=== PATIENT | male | born 1975 | race Caucasian/White ===

== ENCOUNTER 2017-04-26 11:17 | Inpatient (IN) | payer OTHER, SELFPAY ==
[~2017-04-26 11:17] MED LIST: ISOVUE-370 76%-LOCM 1 ML ONE
[2017-04-26 12:07] LABS: #Eosinphils 0.1 thou/uL (0.0-0.7); #Lymphocytes 1.9 thou/uL (1.20-3.40); #Monocytes 0.7 thou/uL (0.11-0.59); #Neutrophils 4.2 thou/uL (1.40-6.50); %Basophils 0.5 % (0.0-1.0); %Eosinophils 1.2 % (0.0-10.0); %Monocytes 9.6 % (0.0-10.0); Hematocrit 41.3 % (42.0-52.0); Mean Platelet Volume 8.5 fL (7.4-10.4); Red Blood Cell (RBC) Count 4.07 mill/uL (4.70-6.10); White Blood Cell (WBC) Count 6.8 thou/uL (4.8-10.8)
[2017-04-26 12:33] LABS: Chloride 95 mmol/L (98-107)
[2017-04-26 12:34] LABS: ALT (SGPT) 223 U/L (8-55); AST (SGOT) 333 U/L (5-34); Alkaline Phosphatase 303 U/L (40-150); Anion Gap 15 mmol/L (10-20); BUN (Urea Nitrogen) 18 mg/dL (8.9-20.6); Calc. Creatinine Clearance 0 mL/min (70-130); Calcium 8.8 mg/dL (7.8-10.44); Carbon Dioxide 27 mmol/L (22-29); Estimated GFR-MDRD 43; Globulin 3.3 g/dL (2.4-3.5); Lipase 48 U/L (8-78); Protein, Total 6.5 g/dL (6.0-8.3)
[2017-04-26] MEDS ORDERED: Ondansetron HCl/PF 4 MG/2 ML Vial ONE (12:35)
[2017-04-26 12:46] LABS: Bilirubin Large (Negative); Blood, Urine Negative (Negative); Ketone, Urine Trace mg/dL (Negative); Nitrite Negative (Negative); Protein, Urine (Dipstick) 30 mg/dL (Neg-Trace)
[2017-04-26 12:49] LABS: Bacteria/HPF None Seen HPF (None Seen); Hyaline Casts/LPF 4-6 HYALINE CAST LPF (0-3 Hyaline); Squamous Epithelial 0-3 HPF (0-3)
[2017-04-26 12:57] LABS: Glucose, Urine (Dipstick) 250 mg/dL (Negative)
--- NOTE | 2017-04-26 13:01 | CT ---
CT ABDOMEN WITH CONTRAST CT PELVIS WITH CONTRAST: DATE: 04/26/2017 HISTORY: A 41-year-old male with nausea, emesis, diarrhea, and generalized abdominal pain. COMPARISON: None. TECHNIQUE: IV injection of iodinated contrast media: Isovue-370 100 mL. Oral contrast media: Not administered. FINDINGS: The liver is diffusely enlarged and has diffusely low attenuation, representing a fatty liver. The s pleen, kidneys, abdominal aorta, adrenals, and pancreas are essentially normal. No small bowel dilat ion. No signs of acute colonic diverticulitis. No ascites or pneumoperitoneum. The lung bases are clear. IMPRESSION: 1. Hepatomegaly. 2. Hepatic steatosis. 3. No other pathology. DISHA Murphy POS: [place]
[2017-04-26 13:05] LABS: RBC/HPF 0-3 HPF (0-3)
[2017-04-26 13:06] LABS: Transitional Epithelial 0-3 HPF (0-3)
[2017-04-26 13:09] LABS: PTT 27.5 SEC (22.9-36.1); Prothrombin Time 13.6 SEC (12.0-14.7)
[2017-04-26] MEDS ORDERED: Pantoprazole 40 MG VIAL ONE (13:17)
[2017-04-26] MEDS ORDERED: Morphine 4 MG/ML Carpuject ONE (13:17)
[2017-04-26] MEDS ORDERED: Multivitamins, Adult 10 ML, Thiamine HCl 100 MG, Folic Acid 1 MG in Dextrose 5 %-0.45 %... IV SCH ×4 (15:00)
[2017-04-26 15:27] LABS: Hemoglobin A1c 5.7 % (4.0-6.0)
[2017-04-26 16:05] VITALS: BMI 32.4
[2017-04-26] MEDS ORDERED: Dextrose 5% in Water 1,000 ML IV PRN (16:09)
[2017-04-26] MEDS ORDERED: Insulin Regular 300 UNITS/3 ML VIAL SC PRN (16:09)
[2017-04-26] MEDS ORDERED: Ondansetron HCl/PF 4 MG/2 ML Vial IVP PRN (16:09)
[2017-04-26] MEDS ORDERED: Eucerin (Mineral Oil/Petrolatum,White) 30 gm Jar TOP PRN (16:09)
[2017-04-26] MEDS ORDERED: Polyethylene Glycol 3350 17 GM Packet PO PRN (16:09)
[2017-04-26] MEDS ORDERED: cloNIDine 0.1 MG TAB PO PRN (16:09)
[2017-04-26] MEDS ORDERED: Ondansetron ODT 4 MG TAB PO PRN (16:09)
[2017-04-26] MEDS ORDERED: Calcium Carbonate 500 MG ChewTAB PO PRN (16:09)
[2017-04-26] MEDS ORDERED: Dextrose 50% Abboject 50 ML SYRINGE SLOW IVP PRN (16:09)
[2017-04-26] MEDS ORDERED: Senokot 8.6 MG TAB PO PRN (16:09)
[2017-04-26] MEDS ORDERED: Morphine PF 1 MG/ML SYR IV SCH (16:45)
[2017-04-26] MEDS ORDERED: FLU VACC QS2017-18 36 mo. & older 0.5 ML SYRINGE IM ONE (17:15)
[2017-04-26] MEDS: Sodium Chloride 0.9% 1,000 ML IV SCH (17:38)
--- NOTE | 2017-04-26 18:25 | HP ---
DATE OF ADMISSION: 04/26/2017 PRIMARY CARE PHYSICIAN: Patient follows at [facility]. CHIEF COMPLAINT: Abnormal labs. HISTORY OF PRESENT ILLNESS: Patient is a 41-year-old male with chronic alcoholism, who presented to the emergency room with above complaints. Over the past few weeks, the patient developed gradual worsening nausea along with intermittent vomi ting. He also had crampy abdominal discomfort. He had some diarrhea initially; however, that has r esolved. No fever, chills, or sick contacts reported. He has a history of drug abuse in the past. He continues to drink heavily on a daily basis. He was evaluated at [facility] yesterday and h ad some blood work drawn. He went for followup and was found to have abnormal LFTs for which he was referred to the emergency room. In the emergency room, initial vital signs showed temperature 97.7, respirations 18, pulse rate of 1 21 with blood pressure of 132/81 with O2 saturation 96% on room air. His initial labs were consiste nt with bilirubin of 5.0 with AST 333, ALT 223, and alkaline phosphatase 303 with normal PT at 13.6. Acute hepatitis profile was negative. He underwent a CT scan of the abdomen with contrast that wa s consistent with hepatomegaly with hepatic steatosis. He received a banana bag, morphine, Protonix , Zofran with IV fluids in the emergency room. PAST MEDICAL HISTORY: 1. Chronic alcoholism. 2. Hypertension. PAST SURGICAL HISTORY: 1. Ingrown toenail removal. 1. Ear surgery (tympanoplasty). ALLERGIES: Patient denies any drug allergies. CURRENT HOME MEDICATIONS: Patient was recently started on lisinopril/HCTZ and Phenergan. He does n ot remember the exact dosages of his medications. SOCIAL HISTORY: As discussed above with drinks 3-4 rounds of vodka on a daily basis. He is a forme r drug user. Smokes 1 pack a day on a daily basis. Lives at home with his fianc?. FAMILY HISTORY: Negative for premature coronary artery disease. REVIEW OF SYSTEMS: The following complete review of systems was negative, unless otherwise mentione d in the HPI or below: CONSTITUTIONAL: Weight loss or gain, ability to conduct usual activities. SKIN: Rash, itching. EYES: Double vision, pain. ENT/MOUTH: Nose bleeding, neck stiffness, pain, tenderness. CARDIOVASCULAR: Palpitations, dyspnea on exertion, orthopnea. RESPIRATORY: Shortness of breath, wheezing, cough, hemoptysis, fever or night sweats. GASTROINTESTINAL: Poor appetite, abdominal pain, heartburn, nausea, vomiting, constipation, or diar jaswant. GENITOURINARY: Urgency, frequency, dysuria, nocturia. MUSCULOSKELETAL: Pain, swelling. NEUROLOGIC/PSYCHIATRIC: Anxiety, depression. ALLERGY/IMMUNOLOGIC: Skin rash, bleeding tendency. PHYSICAL EXAMINATION: VITAL SIGNS: As discussed above. GENERAL: A 41-year-old male in mild distress due to abdominal discomfort that has significantly imp roved. HEENT: Head atraumatic, normocephalic. Sclerae anicteric. Moist mucous membranes. No oral lesion . NECK: Supple, no JVD, no carotid bruit. LUNGS: Clear to auscultation bilaterally. HEART: S1, S2 present. Regular rate and rhythm, intermittent tachycardia. ABDOMEN: Soft, bowel sounds present. Mild generalized tenderness. No rebound, guarding, no costov ertebral angle tenderness. EXTREMITIES: No edema or calf tenderness. NEUROLOGIC: Grossly nonfocal, moves all 4 extremities. PSYCHIATRY: Alert, awake, oriented x3. SKIN: Warm and dry. LYMPH NODES: No palpable lymph nodes in the neck. PERIPHERAL VASCULAR: Radial pulses palpable bilaterally. MUSCULOSKELETAL: No joint swelling or tenderness. LABORATORY FINDINGS: As discussed above. MCV 102 with hemoglobin 13.1, ammonia was normal. Urinal ysis showed hyaline cast. EKG by my review showed sinus tachycardia without significant ST-T wave c hanges. CT scan of the abdomen and pelvis by my review as discussed above. IMPRESSION: 1. Abnormal LFTs consistent with acute alcoholic hepatitis. 2. Chronic alcoholism. 3. Dehydration with acute kidney injury. 4. Hyperglycemia with normal hemoglobin A1c at 5.7. 5. Abnormal liver function tests secondary to #1. 6. Obesity with a BMI of 32.4. 7. Macrocytic anemia, probably secondary to chronic alcoholism. 7. Ongoing tobacco abuse. 8. Former drug user. 9. Hyponatremia, probably secondary to dehydration and mild protein-calorie malnutrition. PLAN: The patient will be monitored on the medical floor. The patient was extensively counseled to quit drinking and smoking. We will continue with thiamine, folic acid and multivitamins. Gastroen terology will be consulted. His discriminant score is 12. There is no need to start him on steroid s. We will repeat LFTs in a.m. Alcohol withdrawal protocol. We will start him on clonidine, which will help with alcohol withdrawal. Hold lisinopril/HCTZ for now. We will also add vitamin B12 and folic acid due to microcytosis. Plan of care was discussed with the patient and he stated understanding.
[2017-04-26] MEDS: cloNIDine 0.1 MG TAB PO SCH (21:37)
[2017-04-26] MEDS: Famotidine 20 MG TAB PO SCH (21:37)
[2017-04-26 23:18] LABS: Amphetamine Not Detected (NotDetected); Methadone Not Detected (NotDetected); Methamphetamine Not Detected (NotDetected)
[2017-04-27] MEDS: traMADol HCl 50 MG TAB PO PRN ×2 (04:23→12:43)
[2017-04-27 05:42] LABS: ALT (SGPT) 172 U/L (8-55); AST (SGOT) 249 U/L (5-34); Alkaline Phosphatase 323 U/L (40-150); Anion Gap 14 mmol/L (10-20); BUN (Urea Nitrogen) 14 mg/dL (8.9-20.6); Bilirubin, Direct 2.3 mg/dL (0.1-0.3); Calc. Creatinine Clearance 91 mL/min (70-130); Calcium 8.3 mg/dL (7.8-10.44); Carbon Dioxide 23 mmol/L (22-29); Chloride 101 mmol/L (98-107); Estimated GFR-MDRD 55; Magnesium 1.7 mg/dL (1.6-2.6); Phosphorus 2.5 mg/dL (2.3-4.7); Protein, Total 5.9 g/dL (6.0-8.3)
[2017-04-27 05:46] LABS: #Basophils 0.1 thou/uL (0.0-0.2); #Eosinphils 0.2 thou/uL (0.0-0.7); #Lymphocytes 2.8 thou/uL (1.20-3.40); #Monocytes 0.7 thou/uL (0.11-0.59); #Neutrophils 4.2 thou/uL (1.40-6.50); %Basophils 1.1 % (0.0-1.0); %Eosinophils 2.4 % (0.0-10.0); %Lymphocytes 35.7 % (21.0-51.0); %Monocytes 8.2 % (0.0-10.0); Mean Platelet Volume 8.4 fL (7.4-10.4); Red Blood Cell (RBC) Count 3.69 mill/uL (4.70-6.10); White Blood Cell (WBC) Count 7.9 thou/uL (4.8-10.8)
[2017-04-27] MEDS ORDERED: Diazepam 5 MG TAB PO PRN (08:01)
[2017-04-27] MEDS ORDERED: Diazepam 5 MG TAB PO SCH (08:15)
[2017-04-27] MEDS ORDERED: Thiamine HCl 200 MG/2 ML VIAL IM SCH (08:15)
[2017-04-27] MEDS ORDERED: Magnesium Sulfate 1 GM, Admixture Fee 1 EACH in Sodium Chloride 0.9% 100 ML IVPB SCH ×2 (08:15→12:30)
[2017-04-27] MEDS: Sodium Chloride 0.9% 1,000 ML IV SCH ×2 (08:31→21:40)
[2017-04-27] MEDS: Multivitamin W/ Minerals 1 TAB PO SCH (08:31)
[2017-04-27] MEDS: Cyanocobalamin (Vitamin B-12) 1,000 MCG TAB PO SCH (08:32)
[2017-04-27] MEDS: cloNIDine 0.1 MG TAB PO SCH ×2 (08:32→21:37)
[2017-04-27] MEDS: Folic Acid 1 MG TAB PO SCH (08:32)
[2017-04-27] MEDS: Famotidine 20 MG TAB PO SCH ×2 (08:32→21:37)
[2017-04-27] MEDS ORDERED: Folic Acid 1 MG TAB PO SCH (09:00)
[2017-04-27] MEDS ORDERED: Multivit, Therapeutic 1 TAB PO SCH (09:00)
--- NOTE | 2017-04-27 12:12 | PDOC.PN ---
- Subjective Encounter Start Date: 04/27/17 Encounter Start Time: 08:00 Pt seen adn examined, chart reviewed in its entirety. This is my first visit with this patient. Pt BP up and tachycardic. feels restless and jittery. denies alcohol addiction. no history of DUI or social dysfunction, but drinks every night before bed and misses it when he doesn't. No n/V/d/C, no CP or SOB, no BM since yesterday am, is having some cramps primarily in LUQ intermittently. Does admit to wheezing, denies history of asthma or COPD. Offered nicotine patch, pt declined. Pt counseled regarding need for tobacco cessation adn alcohol cessation 10 point ROS performed and neg for all except as per HPI - Objective Resuscitation Status: Resuscitation Status FULL:Full Resuscitation MAR Reviewed: Yes Vital Signs & Weight: Vital Signs (12 hours) Temp Pulse Resp BP BP Pulse Ox 04/27/17 11:06 98.5 F 97 18 152/91 H 96 04/27/17 08:32 156/96 H 04/27/17 07:11 98.4 F 98 18 162/107 H 95 04/27/17 04:00 98.2 F 98 18 146/83 H 94 L Weight Admit Weight 207 lb Weight 207 lb Result Diagrams: 04/27/17 04:35 04/27/17 04:35 Additional Labs: Accuchecks 04/27/17 04/27/17 04/26/17 11:06 04:14 19:32 POC Glucose 163 H 124 H 150 H 04/26/17 16:54 POC Glucose 208 H Radiology Reviewed by me: Yes EKG Reviewed by me: Yes Phys Exam - Physical Examination Constitutional: NAD slightly anxious HEENT: PERRLA, moist MMs, sclera anicteric, oral pharynx no lesions mild scleral icterus Neck: no nodes, no JVD, supple, full ROM Respiratory: no wheezing, no rales, no rhonchi, clear to auscultation bilateral slightly prolonged expiration, expiratory wheezes present diffusely Cardiovascular: RRR, no significant murmur, no rub Gastrointestinal: soft, non-tender, no distention, positive bowel sounds Musculoskeletal: no edema, pulses present Neurological: non-focal, normal sensation, moves all 4 limbs Lymphatic: no nodes Psychiatric: normal affect, A&O x 3 Skin: no rash, normal turgor, cap refill <2 seconds Dx/Plan (1) ETOH abuse Code(s): F10.10 - ALCOHOL ABUSE, UNCOMPLICATED Status: Acute Comment: counseled (2) Alcoholic hepatitis Code(s): K70.10 - ALCOHOLIC HEPATITIS WITHOUT ASCITES Status: Acute Comment : LFTs better, continue IV lfuids. GI consulted, followup on their recommendations (3) Alcohol dependence with withdrawal Code(s): F10.239 - ALCOHOL DEPENDENCE WITH WITHDRAWAL, UNSPECIFIED Status: Acute Qualifiers: Complication of substance-induced condition: uncomplicated Qualified Code(s ): F10.230 - Alcohol dependence with withdrawal, uncomplicated (4) Dehydration, moderate Code(s): E86.0 - DEHYDRATION Status: Resolved Comment: continue on IV fluids for now (5) DWAIN (acute kidney injury) Code(s): N17.9 - ACUTE KIDNEY FAILURE, UNSPECIFIED Status: Acute Comment: improved, baseline unknown. Cr back into upper normal range (6) HTN (hypertension) Code(s): I10 - ESSENTIAL (PRIMARY) HYPERTENSION Status: Chronic Qualifiers: Hypertension type: essential hypertension Qualified Code(s): I10 - Essential (primary) hypertension Comment: amanda ybe complicated by withdrawl symptoms (7) Mild protein-calorie malnutrition Code(s): E44.1 - MILD PROTEIN-CALORIE MALNUTRITION Status: Acute - Plan cont current plan of care, PT/OT, out of bed/ambulate * .
[2017-04-27] MEDS: Insulin Regular 300 UNITS/3 ML VIAL SC PRN (17:15)
[2017-04-27] MEDS: Lorazepam 1 MG TAB PO PRN (17:39)
--- NOTE | 2017-04-28 00:34 | CON ---
DATE OF CONSULTATION: 04/27/2017 REFERRING PHYSICIAN: Mark Cid M.D. REASON FOR CONSULTATION: Abnormal LFTs. HISTORY OF PRESENT ILLNESS: Mr. Vik Jung is a 41-year-old male with a history of alcohol abuse over the years. He tends to minimize the amount of alcohol intake he is taking. He says he only drinks about 3-4 short glass of vodka every day. Apparently, he drinks a lot more than he used to. He usually goes to [facility] and he also had a blood test and was found to have elevated LFTs. He was sent to the ER because of above reason. Interestingly, the patient has good appetite. He has no nausea, no vomiting. He has vague abdominal discomfort. He appears very comfortable, but at the same time, he says he has a lot of pain. The patient has no history of any drug abuse in the past. The liver function tests are elevated and suggestive of alcoholic liver disease. The AST is more than ALT. AST is 249, ALT 172, alkaline phosphatase is 323, bilirubin is 3. The abdominal CAT scan done showed basically fatty liver. The patient does admit drinking very heavily; he means that he drinks only 3 to 4 drinks every day. He does not drink anything more than that. The patient denies drug abuse. He has no other relevant symptoms. ALLERGIES: None. SOCIAL HISTORY: The patient has a girlfriend. He smokes a packet of cigarettes per day. He also drinks alcohol on a regular basis for many years. MEDICAL ILLNESSES: 1. Hypertension. 2. Chronic alcohol abuse. SURGERIES: 1. Status post ear surgery. 2. Ingrown toenails in the past. MEDICATIONS: Include lisinopril, hydrochlorothiazide, and Phenergan. FAMILY HISTORY: No family history of any cancer, heart disease, CVA, hypertension. REVIEW OF SYSTEMS: A 10-point system review: Constitutional: There is no history of any fever, night sweats, weight loss, or gait. HORSE TRAINER: No dizziness, no syncope, no TIA, no seizure disorder, no chronic headache. Respiratory System: No history of chronic cough, hemoptysis, shortness of breath; however, he does have allergies off and on. Cardiovascular System: No chest pain, no palpitation, no dyspnea, orthopnea, or PND. Gastrointestinal: No abdominal pain, no nausea, no vomiting, no hematochezia, no melena. Musculoskeletal: History of back pain and arthralgias. Neurological: History of depression or anxiety. PHYSICAL EXAMINATION: GENERAL: He is awake, alert, and communicative. He is in no distress. He appears very comfortable. In fact, he is actually using a nebulizer when I walk in the room, although he denies any asthma. VITAL SIGNS: Afebrile, pulse is 96, blood pressure 175/102. HEENT: Conjunctivae are mildly icteric. NECK: Supple. No adenitis or thyromegaly noted. CARDIOVASCULAR SYSTEM: First and second heart sounds are normal. LUNGS: Clear to auscultation. ABDOMEN: Soft to palpate. Abdomen is mildly tender over the epigastric area. There is no rebound or guarding. Liver is not enlarged. EXTREMITIES: Reveal no edema. LABORATORY DATA: From today, sodium 134, potassium 4.3, chloride 101, bicarb 23 , BUN is 14, creatinine 1.44, glucose is 106, calcium 8.3, bilirubin is 3, direct bilirubin 2.3, AST of 249, ALT 172, alkaline phosphatase 323, mostly intrahepatic cholestasis. CLINICAL IMPRESSION: A 41-year-old male with, 1. Abnormal liver function tests, very suggestive of alcoholic liver disease. He had a fatty liver on CAT scan. 2. Abdominal pain, very minimal and nonspecific. 3. Hypertension. RECOMMENDATIONS: 1. I agree with thiamine and folic acid. 2. I had a long talk with the patient, explained him about the need for stop drinking completely. He promised me that he will stop drinking completely from now on, and he can probably go home hopefully tomorrow. HARPER
[2017-04-28] MEDS ORDERED: Diazepam 5 MG TAB PO PRN (04:00)
[2017-04-28 06:09] LABS: ALT (SGPT) 127 U/L (8-55); AST (SGOT) 152 U/L (5-34); Alkaline Phosphatase 327 U/L (40-150); Anion Gap 10 mmol/L (10-20); BUN (Urea Nitrogen) 12 mg/dL (8.9-20.6); Bilirubin, Total 2.4 mg/dL (0.2-1.2); Calc. Creatinine Clearance 109 mL/min (70-130); Calcium 7.9 mg/dL (7.8-10.44); Carbon Dioxide 28 mmol/L (22-29); Chloride 99 mmol/L (98-107); Estimated GFR-MDRD 67; Globulin 2.6 g/dL (2.4-3.5); Magnesium 1.4 mg/dL (1.6-2.6); Protein, Total 5.1 g/dL (6.0-8.3)
[2017-04-28 06:13] LABS: Band 2 % (5-11); Hematocrit 33.9 % (42.0-52.0); Mean Platelet Volume 8.7 fL (7.4-10.4); Neutrophil 62 % (42-75); Reactive Lymphocytes 2 % (0-10); Red Blood Cell (RBC) Count 3.27 mill/uL (4.70-6.10); Stomatocytes SLIGHT = 2-5 cells (100X) (0-1/hpf); Target Cells SLIGHT = 2-5 cells (100X) (0-1/hpf); White Blood Cell (WBC) Count 7.1 thou/uL (4.8-10.8)
[2017-04-28] MEDS ORDERED: Magnesium Sulfate 4 GM in Sodium Chloride 0.9% 250 ML 250 ML IVPB SCH (08:00)
[2017-04-28] MEDS: Multivitamin W/ Minerals 1 TAB PO SCH (08:15)
[2017-04-28] MEDS: Lorazepam 1 MG TAB PO PRN ×2 (08:15→16:24)
[2017-04-28] MEDS: Diabetic Tussin 200 MG/10 ML UDCUP PO PRN (08:15)
[2017-04-28] MEDS: Magnesium Oxide 400 MG TAB PO SCH (08:16)
[2017-04-28] MEDS: Cyanocobalamin (Vitamin B-12) 1,000 MCG TAB PO SCH (08:16)
[2017-04-28] MEDS: cloNIDine 0.1 MG TAB PO SCH ×2 (08:16→20:14)
[2017-04-28] MEDS: Folic Acid 1 MG TAB PO SCH (08:16)
[2017-04-28] MEDS: Famotidine 20 MG TAB PO SCH ×2 (08:16→20:14)
[2017-04-28] MEDS: Sodium Chloride 0.9% 1,000 ML IV SCH ×2 (08:18→21:33)
--- NOTE | 2017-04-28 11:23 | PDOC.PN ---
- Subjective Encounter Start Date: 04/28/17 Encounter Start Time: 09:30 -: old records requested/rev Patient seen and examined. No new complaints. No overnight events, still has shakiness - Objective Resuscitation Status: Resuscitation Status FULL:Full Resuscitation MAR Reviewed: Yes Vital Signs & Weight: Vital Signs (12 hours) Temp Pulse Resp BP BP Pulse Ox 04/28/17 10:32 90 12 04/28/17 08:00 98 F 86 18 163/94 H 04/28/17 07:30 98 F 86 18 163/94 H 96 04/28/17 04:00 98.6 F 93 16 151/89 H 151/89 H 96 04/28/17 00:00 97.8 F 93 16 129/70 129/70 98 Weight Admit Weight 207 lb Weight 207 lb I&O: 04/27/17 04/28/17 04/29/17 06:59 06:59 06:59 Intake Total 2560 Output Total 2600 Balance -40 Result Diagrams: 04/28/17 04:19 04/28/17 04:19 Additional Labs: Accuchecks 04/28/17 04/27/17 04/27/17 04:26 19:13 15:53 POC Glucose 129 H 126 H 228 H 04/27/17 11:06 POC Glucose 163 H Phys Exam - Physical Examination Constitutional: NAD HEENT: PERRLA, moist MMs, sclera anicteric Neck: no JVD, supple Respiratory: no wheezing, no rales, no rhonchi Cardiovascular: RRR, no significant murmur, no rub Gastrointestinal: soft, non-tender, no distention, positive bowel sounds Musculoskeletal: no edema, pulses present Neurological: non-focal, normal sensation Lymphatic: no nodes Psychiatric: normal affect, A&O x 3 Skin: no rash, normal turgor Dx/Plan (1) DWAIN (acute kidney injury) Code(s): N17.9 - ACUTE KIDNEY FAILURE, UNSPECIFIED Status: Acute Comment: improved, baseline unknown. Cr back into upper normal range (2) Alcohol withdrawal syndrome Code(s): F10.239 - ALCOHOL DEPENDENCE WITH WITHDRAWAL, UNSPECIFIED Status: Acute (3) Alcoholic hepatitis Code(s): K70.10 - ALCOHOLIC HEPATITIS WITHOUT ASCITES Status: Acute Comment : LFTs better, continue IV lfuids. GI consulted, followup on their recommendations (4) Hypomagnesemia Code(s): E83.42 - HYPOMAGNESEMIA Status: Acute (5) Mild protein-calorie malnutrition Code(s): E44.1 - MILD PROTEIN-CALORIE MALNUTRITION Status: Acute (6) ETOH abuse Code(s): F10.10 - ALCOHOL ABUSE, UNCOMPLICATED Status: Chronic Comment: counseled (7) HTN (hypertension) Code(s): I10 - ESSENTIAL (PRIMARY) HYPERTENSION Status: Chronic Qualifiers: Hypertension type: essential hypertension Qualified Code(s): I10 - Essential (primary) hypertension Comment: amanda villa complicated by withdrawl symptoms (8) Macrocytic anemia Code(s): D53.9 - NUTRITIONAL ANEMIA, UNSPECIFIED Status: Chronic (9) Obesity (BMI 30.0-34.9) Code(s): E66.9 - OBESITY, UNSPECIFIED Status: Chronic (10) Tobacco abuse Code(s): Z72.0 - TOBACCO USE Status: Chronic (11) Dehydration, moderate Code(s): E86.0 - DEHYDRATION Status: Resolved Comment: continue on IV fluids for now - Plan cont current plan of care, plan discussed w/ family * replace magnesium * continue to treat for alcohol withdrawl * will monitor today * continue oral folic acid, thiamine, and B12. * medication reviewed as below * symptomatic treatment * counselled to avoid alcohol Review of Systems - Review of Systems ENT: negative: Ear Pain, Ear Discharge, Nose Pain, Nose Discharge, Nose Congestion, Mouth Pain, Mouth Swelling, Throat Pain, Throat Swelling, Other Respiratory: negative: Cough, Dry, Shortness of Breath, Hemoptysis, SOB with Excertion, Pleuritic Pain, Sputum, Wheezing Cardiovascular: negative: Chest Pain, Palpitations, Orthopnea, Paroxysmal Noc. Dyspnea, Edema, Light Headedness, Other Gastrointestinal: negative: Nausea, Vomiting, Abdominal Pain, Diarrhea, Constipation, Melena, Hematochezia, Other Genitourinary: negative: Dysuria, Frequency, Incontinence, Hematuria, Retention , Other Musculoskeletal: negative: Neck Pain, Shoulder Pain, Arm Pain, Back Pain, Hand Pain, Leg Pain, Foot Pain, Other Skin: negative: Rash, Lesions, Monico, Bruising, Other - Medications/Allergies Allergies/Adverse Reactions: Allergies Allergy/AdvReac Type Severity Reaction Status Date / Time No Known Drug Allergies Allergy Verified 04/26/17 14:47 Medications: Current Medications Albuterol/Ipratropium (Duoneb) 3 ml NEB [id number] PRN PRN Reason: SOB &/or Wheezing Last Admin: 04/28/17 10:32 Dose: 3 ml Calcium Carbonate (Tums) 1,000 mg PO Q4H PRN PRN Reason: Heartburn or Indigestion Clonidine (Catapres) 0.1 mg PO Q4H PRN PRN Reason: Systolic BP > 180 Clonidine (Catapres) 0.1 mg PO BID [facility] Last Admin: 04/28/17 08:16 Dose: 0.1 mg Cyanocobalamin (Vitamin B-12) 1,000 mcg PO DAILY [facility] Last Admin: 04/28/17 08:16 Dose: 1,000 mcg Dextrose/Water (Dextrose 50%) 25 gm SLOW IVP PRN PRN PRN Reason: Hypoglycemia Diazepam (Valium) 5 mg PO Q4H PRN PRN Reason: FOR ASE 10 OR GREATER Famotidine (Pepcid) 20 mg PO BID [facility] Last Admin: 04/28/17 08:16 Dose: 20 mg Folic Acid (Folvite) 1 mg PO DAILY [facility] Last Admin: 04/28/17 08:16 Dose: 1 mg Glucagon (Glucagon) 1 mg IM PRN PRN PRN Reason: Hypoglycemia Guaifenesin (Robitussin Sf) 200 mg PO Q4H PRN PRN Reason: Cough Last Admin: 04/28/17 08:15 Dose: 200 mg Dextrose/Water (D5w) 1,000 mls @ 0 mls/hr IV .Q0M PRN; As Directed PRN Reason: Hypoglycemia Sodium Chloride (Normal Saline 0.9%) 1,000 mls @ 75 mls/hr IV .[id number] [facility] Last Admin: 04/28/17 08:18 Dose: 1,000 mls Insulin Human Regular (Humulin R) 0 units SC .MILD SLIDING SCALE PRN PRN Reason: Mild Correctional Scale Last Admin: 04/27/17 17:15 Dose: 3 unit Insulin Human Regular (Humulin R) 0 units SC .BEDTIME SLIDING SC PRN PRN Reason: Bedtime Correctional Scale Iron/Minerals/Multivitamins (Theragran M) 1 tab PO DAILY [facility] Last Admin: 04/28/17 08:15 Dose: 1 tab Lorazepam (Ativan) 1 mg PO Q8H PRN PRN Reason: Anxiety Last Admin: 04/28/17 08:15 Dose: 1 mg Magnesium Oxide (Magnesium Oxide) 400 mg PO DAILY [facility] Last Admin: 04/28/17 08:16 Dose: 400 mg Mineral Oil/White Petrolatum (Eucerin Cream) 0 gm TOP BIDPRN PRN PRN Reason: Dry Skin Miscellaneous (Ase Protocol) 1 each FS ASDIR [facility] Ondansetron HCl (Zofran Odt) 4 mg PO Q6H PRN PRN Reason: Nausea/Vomiting Last Admin: 04/27/17 04:23 Dose: 4 mg Ondansetron HCl (Zofran) 4 mg IVP Q6H PRN PRN Reason: Nausea/Vomiting Polyethylene Glycol (Miralax) 17 gm PO DAILYPRN PRN PRN Reason: Constipation Senna (Senokot) 2 tab PO HSPRN PRN PRN Reason: Constipation Sodium Chloride (Flush - Normal Saline) 10 ml IVF Q12HR [facility] Last Admin: 04/28/17 08:17 Dose: Not Given Sodium Chloride (Flush - Normal Saline) 10 ml IVF PRN PRN PRN Reason: Saline Flush Thiamine HCl (Thiamine) 100 mg PO DAILY [facility] Last Admin: 04/28/17 08:16 Dose: 100 mg
[2017-04-28] MEDS: Insulin Regular 300 UNITS/3 ML VIAL SC PRN ×2 (12:09→16:25)
[2017-04-28] MEDS ORDERED: traMADol HCl 50 MG TAB PO PRN (12:37)
[2017-04-28] MEDS ORDERED: Acetaminophen 325 MG TAB PO PRN (15:42)
[2017-04-28] MEDS ORDERED: Sodium Chloride 0.65% Nasal 44 ML BOT EA NARE PRN (15:42)
[2017-04-28] MEDS ORDERED: hydrALAZINE 20 MG/ML VIAL SLOW IVP PRN (15:42)
[2017-04-28] MEDS ORDERED: Loperamide HCl 2 MG CAP PO PRN (15:42)
[2017-04-28] MEDS ORDERED: Milk Of Magnesia 30 ML UDCUP PO PRN (15:42)
[2017-04-28] MEDS ORDERED: Temazepam 15 MG CAP PO PRN (15:42)
[2017-04-28] MEDS ORDERED: Loratadine 10 MG TAB PO PRN (15:42)
[2017-04-28] MEDS ORDERED: Mag-Al 1200 mg/1200 mg/30 ML UDCUP PO PRN (15:42)
[2017-04-29] MEDS: Sodium Chloride 0.9% 1,000 ML IV SCH (03:25)
[2017-04-29 05:32] LABS: #Basophils 0.1 thou/uL (0.0-0.2); #Eosinphils 0.2 thou/uL (0.0-0.7); #Lymphocytes 2.3 thou/uL (1.20-3.40); #Monocytes 0.7 thou/uL (0.11-0.59); #Neutrophils 3.5 thou/uL (1.40-6.50); %Basophils 1.6 % (0.0-1.0); %Eosinophils 2.5 % (0.0-10.0); %Lymphocytes 33.9 % (21.0-51.0); %Monocytes 9.7 % (0.0-10.0); Hematocrit 32.2 % (42.0-52.0); Mean Platelet Volume 8.6 fL (7.4-10.4); Red Blood Cell (RBC) Count 3.12 mill/uL (4.70-6.10); White Blood Cell (WBC) Count 6.8 thou/uL (4.8-10.8)
[2017-04-29 05:48] LABS: ALT (SGPT) 92 U/L (8-55); AST (SGOT) 90 U/L (5-34); Alkaline Phosphatase 314 U/L (40-150); Anion Gap 12 mmol/L (10-20); BUN (Urea Nitrogen) 11 mg/dL (8.9-20.6); Bilirubin, Total 1.9 mg/dL (0.2-1.2); Calc. Creatinine Clearance 117 mL/min (70-130); Calcium 7.9 mg/dL (7.8-10.44); Carbon Dioxide 27 mmol/L (22-29); Chloride 101 mmol/L (98-107); Estimated GFR-MDRD 72; Globulin 2.5 g/dL (2.4-3.5); Magnesium 1.6 mg/dL (1.6-2.6)
[2017-04-29] MEDS: Folic Acid 1 MG TAB PO SCH (07:59)
[2017-04-29] MEDS: Diabetic Tussin 200 MG/10 ML UDCUP PO PRN (07:59)
[2017-04-29] MEDS: Cyanocobalamin (Vitamin B-12) 1,000 MCG TAB PO SCH (07:59)
[2017-04-29] MEDS: Multivitamin W/ Minerals 1 TAB PO SCH (07:59)
[2017-04-29] MEDS: Famotidine 20 MG TAB PO SCH (07:59)
[2017-04-29] MEDS: Magnesium Oxide 400 MG TAB PO SCH (08:00)
[2017-04-29] MEDS: Lorazepam 1 MG TAB PO PRN (08:00)
[2017-04-29] MEDS ORDERED: Lisinopril 20 MG TAB PO SCH (09:00)
[2017-04-29] MEDS ORDERED: Metoprolol Tartrate 25 MG TAB PO SCH (09:00)
[2017-04-29 11:16] VITALS: BP 163/100; TEMP 98.8
--- NOTE | 2017-04-29 13:07 | DIS ---
DATE OF ADMISSION: 04/26/2017 DATE OF DISCHARGE: 04/29/2017 PRIMARY CARE PHYSICIAN: [facility]. DISCHARGE DISPOSITION: Home. PRIMARY DISCHARGE DIAGNOSES: Acute kidney failure, prerenal, improved; acute alcohol withdrawal syn drome, improved; alcoholic hepatitis, improved; hypomagnesemia, improved; mild protein calorie malnu trition; dehydration, corrected. SECONDARY DISCHARGE DIAGNOSES: Tobacco abuse disorder, alcohol abuse, obesity with body mass index 32, macrocytic anemia, and hypertension. PRIMARY PROCEDURE/OPERATION: None. RADIOLOGICAL INVESTIGATION: Abdomen and pelvis CT scan on admission showed fatty liver, hepatomegal y. SIGNIFICANT LABORATORY DATA: WBC 6.8, hemoglobin 10.8, platelet 124, MCV 103. INR 1.0. Sodium 136 , potassium 3.7, BUN 11, creatinine 1.13, calcium 7.9, hemoglobin A1c 5.7, AST 90, ALT 92, alkaline phosphatase 314, albumin 2.5. TSH 0.74 and lipase 48. Urinalysis unremarkable. Urine drug screen positive for opiates. Hepatitis profile negative. DISCHARGE MEDICATIONS: Vitamin B12 1000 mcg p.o. daily, Pepcid 20 mg p.o. b.i.d., folic acid 1 mg p .o. daily, lisinopril 20 mg p.o. daily, magnesium oxide 400 mg p.o. daily, metoprolol 25 mg p.o. b.i .d., multivitamin 1 tablet p.o. daily, Phenergan 12.5 mg q.6 hourly p.r.n., thiamine 100 mg p.o. stephanie ly. CONTRAINDICATIONS: None. CODE STATUS: FULL CODE. INPATIENT ETL DATA ARCHITECT: Dr. Velázquez. TEST RESULTS PENDING ON DISCHARGE: None. ALLERGIES: No known drug allergy. DISCHARGE PLAN: Post hospital, the patient will follow up with Dr. Velázquez as instructed and prim [place] care physician. HOSPITAL COURSE: A 41-year-old male with above-mentioned medical problem who was admitted by Dr. Ivette Cid. Please see his H\T\P for further details. This patient has significant history of alcoh ol and tobacco abuse. He was followed up at [facility] and from there he was sent to emergency room. This patient was having crampy abdominal discomfort, nausea, vomiting. He has significant al coholism history and when we did routine blood tests in our hospital, patient was found with signifi cant abnormal LFTs. CT of the abdomen and pelvis which showed hepatomegaly and fatty liver. Viral hepatitis profile was negative. Patient was admitted to medical floor. He was treated with IV flui d hydration and symptomatic treatment. He had mild acute kidney injury that was also improved with IV fluid. While in hospital, we provided extensive counseling to avoid tobacco and alcohol abuse. The patient was also evaluated by Dr. Velázquez and he recommended not to do anymore investigation at this poin t. At this point, the patient's LFT was improving. Patient's alcohol withdrawal syndrome completel y resolved. The patient is medically stable. He is ambulatory, tolerating p.o. well. Necessary pa tient counseling given to avoid alcohol and tobacco abuse on the day of discharge. The patient is seen and examined at bedside today. PHYSICAL EXAMINATION: VITAL SIGNS: Currently, temperature 98.8, pulse 102, respiratory rate 22, saturation 95%, blood pre ssure 163/100. Weight 207 pounds. GENERAL: The patient is currently alert, awake, in no acute distress. HEAD: Normocephalic, atraumatic. LUNGS: Clear. CARDIAC: S1 and S2 regular, without any murmurs. ABDOMEN: Soft and benign. EXTREMITIES: No edema. NEUROLOGIC: Nonfocal examination. Overall, patient is medically stable for discharge today.
--- NOTE | 2017-06-17 14:46 | EKG ---
Test Reason : Blood Pressure : / mmHG Vent. Rate : 117 BPM Atrial Rate : 117 BPM P-R Int : 142 ms QRS Dur : 068 ms QT Int : 300 ms P-R-T Axes : 072 065 059 degrees QTc Int : 418 ms Sinus tachycardia Otherwise normal ECG Confirmed by DAYAN MOHAN, FLAVIO Morales ([id number]), news videotape editor JOSELITO NANCE ([id number]) on 06/17/2017 2:46:05 PM Referred By: Confirmed By:FLAVIO HANLEY MD
== END 2017-04-29 11:40 | disposition home or self-care (01) | DRG 683 ==
LOC: ERS 11:17 → T4-A 15:07
PROVIDERS: ADMIT Internal Medicine; ATTEND Internal Medicine
DX: N17.9 Acute kidney failure, unspecified (principal); E87.1 Hypo-osmolality and hyponatremia; K70.10 Alcoholic hepatitis without ascites; E44.1 Mild protein-calorie malnutrition; F10.239 Alcohol dependence with withdrawal, unspecified; E86.0 Dehydration; F10.20 Alcohol dependence, uncomplicated; E66.9 Obesity, unspecified; Z68.32 Body mass index [BMI] 32.0-32.9, adult; D53.9 Nutritional anemia, unspecified; F17.210 Nicotine dependence, cigarettes, uncomplicated; Z23 Encounter for immunization; E83.42 Hypomagnesemia; I10 Essential (primary) hypertension; F19.11 Other psychoactive substance abuse, in remission
CPT/HCPCS: 36415; 36416; 74177; 80048; 80053; 80074; 80076; 80306; 81003; 81015; 82140; 82150; 83036; 83690; 83735; 84100; 84443; 85025; 85610; 85730; 90471; 90682; 90732; 93005; 94640; 96361; 96374; 96375; A4216; C9113; G0008; G0009; G8978-GP-CH; G8979-GP-CH; G8980-GP-CH; J1815; J2270; J2274; J2405; J3411; J3475; J7042; J7050; J7620; Q0162; Q2036

== ENCOUNTER 2017-07-31 12:30 | Emergency (ER) | payer OTHER, SELFPAY ==
[2017-07-31 13:30] LABS: Bilirubin Negative (Negative); Blood, Urine Negative (Negative); Clarity CLEAR (Clear); Glucose, Urine (Dipstick) 250 mg/dL (Negative); Leukocyte Negative (Negative); Nitrite Negative (Negative); Protein, Urine (Dipstick) Negative (Neg-Trace); Specific Gravity, Urine 1.017 (1.002-1.036); Urobilinogen 0.2 mg/dL (0.2-1.0); pH, Urine 7.5 (5.0-9.0)
[2017-07-31 13:40] LABS: #Basophils 0.1 thou/uL (0.0-0.2); #Eosinphils 0.1 thou/uL (0.0-0.7); #Neutrophils 3.9 thou/uL (1.40-6.50); %Basophils 1.1 % (0.0-1.0); %Lymphocytes 28.3 % (21.0-51.0); %Monocytes 13.8 % (0.0-10.0); %Neutrophils 54.8 % (42.0-75.0); Hemoglobin 14.4 g/dL (14.0-18.0); Mean Corpuscular HGB CONC 32.2 g/dL (32.0-36.0); Mean Corpuscular Hemoglobin 31.7 pg (27.0-31.0); Mean Corpuscular Volume 98.6 fl (80.0-94.0); Mean Platelet Volume 6.3 fL (7.4-10.4); Platelet Count 383 thou/uL (130-400); RBC Distribution Width 12.2 % (11.5-14.5); Red Blood Cell (RBC) Count 4.54 mill/uL (4.70-6.10); White Blood Cell (WBC) Count 7.1 thou/uL (4.8-10.8)
[2017-07-31 14:00] LABS: ALT (SGPT) 116 U/L (8-55); AST (SGOT) 183 U/L (5-34); Albumin 3.9 g/dL (3.5-5.0); Alkaline Phosphatase 128 U/L (40-150); Anion Gap 14 mmol/L (10-20); BUN (Urea Nitrogen) 19 mg/dL (8.9-20.6); Bilirubin, Total 1.1 mg/dL (0.2-1.2); Calc. Creatinine Clearance 0 mL/min (70-130); Calcium 9.1 mg/dL (7.8-10.44); Carbon Dioxide 30 mmol/L (22-29); Chloride 98 mmol/L (98-107); Estimated GFR-MDRD 81; Globulin 3.1 g/dL (2.4-3.5); Glucose 194 mg/dL (70-105); Potassium 3.9 mmol/L (3.5-5.1); Sodium 138 mmol/L (136-145)
[2017-07-31] MEDS ORDERED: Ondansetron HCl/PF 4 MG/2 ML Vial ONE (14:13)
[2017-07-31] MEDS ORDERED: Ketorolac Tromethamine 30 MG/ML VIAL ONE (14:13)
[2017-07-31 14:16] LABS: CKMB 4.2 ng/mL (0-6.6); Troponin I Less than 0.010 ng/mL (< 0.028)
--- NOTE | 2017-07-31 15:02 | RAD ---
RADIOGRAPH CHEST 2 VIEWS: HISTORY: 41-year-old male with cough. FINDINGS: There is no air space density, pulmonary edema, pleural effusion, pneumothorax, or cardiomegaly. IMPRESSION: No acute cardiopulmonary findings. oskar POS: JIN
--- NOTE | 2017-07-31 16:09 | CT ---
CT ABDOMEN AND PELVIS WITH IV CONTRAST: Date: 07-31-17 History: Abdominal pain. History of pancreatitis. Patient also complains of cough and watery stool. Comparison: 04-26-17 FINDINGS: The liver remains enlarged in craniocaudal dimensions measuring 19 cm, but otherwise has a normal carmen earance. There appeared to be fatty infiltration of the liver on the prior study, but this appears im proved on today's exam. There is minimal airspace density seen in the region of the lingula which may be related to atelectasis. Lungs bases are otherwise clear. The liver, spleen, pancreas, bilateral adrenal glands, kidneys, and urinary bladder demonstrate a nor mal CT appearance. Minimal vascular calcifications are seen in the abdominal aorta. The appendix is visualized and normal in caliber. No free fluid, fluid collection, or lymphadenopathy is seen in the abdomen or pelvis. Exam is stable when compared to the prior study. IMPRESSION: 1. No acute findings are seen in the abdomen or pelvis. 2. Stable enlargement of the liver in craniocaudal dimensions. 3. No CT evidence of appendicitis. POS: [facility]
[2017-07-31] MEDS ORDERED: Dicyclomine 20 MG TAB ONE (16:42)
[2017-07-31] MEDS ORDERED: ISOVUE-370 76%-LOCM 1 ML ONE (16:53)
== END 2017-07-31 16:43 | disposition home or self-care (01) ==
LOC: ERS 12:30
DX: R11.2 Nausea with vomiting, unspecified (principal); R19.7 Diarrhea, unspecified; R10.13 Epigastric pain; R10.12 Left upper quadrant pain; I10 Essential (primary) hypertension; K74.60 Unspecified cirrhosis of liver; F17.210 Nicotine dependence, cigarettes, uncomplicated; Z79.899 Other long term (current) drug therapy; Z71.6 Tobacco abuse counseling
CPT/HCPCS: 36415; 71046; 74177; 80053; 81003; 82553; 83605; 83690; 84484; 85025; 93005; 94640; 96361; 96374; 96375; 99406; J1885; J2405; J7620

== ENCOUNTER 2017-08-02 11:14 | Emergency (ER) | payer SELFPAY | END 2017-08-02 12:01 | disposition home or self-care (01) | LOC: ERS 11:14 | DX: K52.9 Noninfective gastroenteritis and colitis, unspecified (principal); I10 Essential (primary) hypertension; F17.210 Nicotine dependence, cigarettes, uncomplicated; Z79.899 Other long term (current) drug therapy | CPT/HCPCS: 99283 ==

== ENCOUNTER 2022-06-27 16:57 | Emergency (ER) | payer OTHER | END 2022-06-27 17:15 | LOC: ERS 16:57 | DX: M79.671 Pain in right foot (principal); K21.9 Gastro-esophageal reflux disease without esophagitis; E11.9 Type 2 diabetes mellitus without complications; I10 Essential (primary) hypertension; F17.210 Nicotine dependence, cigarettes, uncomplicated; W01.0XXA Fall on same level from slipping, tripping and stumbling without subsequent striking against object, initial encounter; Y93.02 Activity, running | CPT/HCPCS: 99283 ==